=== PATIENT | male | born 1980 | race Caucasian/White ===

== ENCOUNTER 2016-02-18 11:18 | Emergency (ER) | payer OTHER ==
[2016-02-18] MEDS ORDERED: Sodium Chloride 0.9% 1000 ML 1,000 ML IV STA (11:44)
[2016-02-18] MEDS ORDERED: Levaquin 500MG/100ML D5W 100 ML IV ONE ×2 (11:44→11:50)
[2016-02-18] MEDS ORDERED: TORAdol 30 mg Injection IV ONE (11:46)
[2016-02-18] MEDS ORDERED: TORAdol 30 mg Injection ONE (11:50)
[2016-02-18] MEDS ORDERED: Sodium Chloride 0.9% 1000 ML 1,000 ML ONE (11:50)
--- NOTE | 2016-02-18 11:53 | ERPHSYRPT ---
- History of Present Illness Time Seen by Provider: 02/18/16 11:40 Source: patient Exam Limitations: clinical condition Patient Subjective Stated Complaint: PT REPORTS BILATERAL RIB PAIN BEGINNING A FEW DAYS AGO-PRODUCTIVE COUGH-UNSURE OF FEVER-REPORTS PAIN INCREASES WITH DEEP BREATHING Triage Nursing Assessment: PT FLUSHED WARM ET DRY-A & O X 3-RESP NONLABORED- LUNGS CLEAR Physician History: PATIENT COMPLAINS OF PRODUCTIVE COUGH GREEN SPUTUM ASSOCIATED WITH BILATERAL CHEST PAIN UPON INSPIRATION. DENIES FEVER, DYSPNEA, CHEST PAIN AT REST. Timing/Duration: day(s) Cough Quality/Degree: productive cough Possible Cause: occasional episodes Modifying Factors: Improves With: coughing Associated Symptoms: chest pain/soreness, cough Allergies/Adverse Reactions: Penicillins Allergy (Unknown, Verified 02/18/16 11:29) Hx Tetanus, Diphtheria Vaccination/Date Given: No Hx Influenza Vaccination/Date Given: No Hx Pneumococcal Vaccination/Date Given: No Immunizations Up to Date: Yes - Review of Systems Constitutional: No Symptoms, No Fever, No Chills Eyes: No Symptoms Ears, Nose, & Throat: No Symptoms Respiratory: Cough, No Dyspnea Cardiac: Chest Pain, No Edema, No Syncope Abdominal/Gastrointestinal: No Symptoms, No Abdominal Pain, No Nausea, No Vomiting, No Diarrhea Genitourinary Symptoms: No Symptoms, No Dysuria Musculoskeletal: No Symptoms, No Back Pain, No Neck Pain Skin: No Symptoms, No Rash Neurological: No Symptoms, No Dizziness, No Focal Weakness, No Sensory Changes Psychological: No Symptoms Endocrine: No Symptoms All Other Systems: Reviewed and Negative - Past Medical History Pertinent Past Medical History: Yes Neurological History: No Pertinent History ENT History: No Pertinent History Cardiac History: No Pertinent History Respiratory History: No Pertinent History Endocrine Medical History: No Pertinent History Musculoskeletal History: No Pertinent History GI Medical History: Diverticulitis History: No Pertinent History Psycho-Social History: No Pertinent History Male Reproductive Disorders: No Pertinent History Other Medical History: CHRONIC BACK PAIN - Past Surgical History Past Surgical History: Yes Neuro Surgical History: No Pertinent History Cardiac: No Pertinent History Respiratory: No Pertinent History Gastrointestinal: No Pertinent History Genitourinary: No Pertinent History Musculoskeletal: Orthopedic Surgery Male Surgical History: No Pertinent History Other Surgical History: TONSILS. TORN LIGAMENT REPAIR IN LEFT KNEE - Social History Smoking Status: Current every day smoker How long have you smoked: 5 Exposure to second hand smoke: Yes Drug Use: none Patient Lives Alone: No - Nursing Vital Signs Nursing Vital Signs: Initial Vital Signs Temperature 98.1 F Temperature Source Oral Pulse Rate 90 Respiratory Rate 22 Blood Pressure 117/71 Pain Intensity 5 - Physical Exam General Appearance: no apparent distress, alert Eye Exam: PERRL/EOMI, eyes nml inspection Ears, Nose, Throat Exam: normal ENT inspection, TMs normal, pharynx normal, moist mucous membranes Neck Exam: normal inspection, non-tender, supple, full range of motion Respiratory Exam: normal breath sounds, chest tenderness (BILATERAL LOWER RIBS 8TH TO 12TH, NO CREPITUS OR ECCHYMOSIS), lungs clear, No respiratory distress Cardiovascular Exam: regular rate/rhythm, normal heart sounds Gastrointestinal/Abdomen Exam: soft, normal bowel sounds, other (OBESE, NONTENDER.), No tenderness Back Exam: normal inspection, No CVA tenderness, No vertebral tenderness Extremity Exam: normal inspection, normal range of motion Neurologic Exam: alert, oriented x 3, cooperative, normal mood/affect, sensation nml, No motor deficits Skin Exam: normal color, warm, dry, No rash Lymphatic Exam: No adenopathy SpO2 Interpretation: normal SpO2: 96 Oxygen Delivery: Room Air - Radiology Exams Chest X-ray Interpretation: Discussed w/ radiologist, Negative, No Infiltrates Ordered Tests: Active Orders 24 hr Category Date Time Status CHEST 2 VIEWS (PA AND LAT) Stat Exams 02/18/16 11:45 Completed CBC W DIFF Stat Lab 02/18/16 11:45 Completed Medication Summary Generic Name Dose Route Start Last Admin Trade Name Freq PRN Reason Stop Dose Admin Sodium Chloride 1,000 mls @ 500 mls/hr 02/18/16 11:44 02/18/16 11:51 Sodium Chloride 0.9% 1000 Ml IV 02/18/16 13:43 500 mls/hr .Q2H STA Administration Discontinued Medications Generic Name Dose Route Start Last Admin Trade Name Freq PRN Reason Stop Dose Admin Levofloxacin/Dextrose 100 mls @ 100 mls/hr 02/18/16 11:44 02/18/16 11:51 Levaquin 500mg/100ml D5w IV 02/18/16 12:43 100 mls/hr STAT ONE Administration Sodium Chloride Confirm 02/18/16 11:50 Sodium Chloride 0.9% 1000 Ml Administered 02/18/16 11:51 Dose 1,000 mls @ ud .ROUTE .STK-MED ONE Levofloxacin/Dextrose Confirm 02/18/16 11:50 Levaquin 500mg/100ml D5w Administered 02/18/16 11:51 Dose 100 mls @ ud IV .STK-MED ONE Ketorolac Tromethamine 30 mg 02/18/16 11:46 02/18/16 11:51 Toradol 30 Mg Injection IV 02/18/16 11:47 30 mg STAT ONE Administration Ketorolac Tromethamine Confirm 02/18/16 11:50 Toradol 30 Mg Injection Administered 02/18/16 11:51 Dose 30 mg .ROUTE .STK-MED ONE Lab/Rad Data: Laboratory Result Diagrams 02/18/16 11:45 Laboratory Results 02/18/16 Range/Units 11:45 WBC 10.2 (4.0-10.5) K/mm3 RBC 4.95 (4.1-5.6) M/mm3 Hgb 14.8 (12.5-18.0) gm/dl Hct 45.9 (42-50) % MCV 92.7 (78-100) fl MCH 29.9 (26-32) pg MCHC 32.2 (32-36) g/dl RDW 13.8 (11.5-14.0) % Plt Count 402 (150-450) K/mm3 MPV 9.8 H (6-9.5) fl Gran % 68.9 H (36.0-66.0) % Lymphocytes % 20.4 L (24.0-44.0) % Monocytes % 9.0 (0.0-12.0) % Eosinophils % 1.5 (0.00-5.0) % Basophils % 0.2 (0.0-0.4) % Basophils # 0.02 (0-0.4) - Progress Progress Note: 02/18/16 11:51 PATIENT ADMINISTERED IV NORMAL SALINE 500ML/HR, LEVAQUIN 500MG IVPB, TORADOL 30MG IV FOR ANALGESIA. Blood Culture(s) Obtained: No Antibiotics given: Yes (LEVAQUIN 500MG IVPB) Counseled pt/family regarding: lab results, diagnosis, need for follow-up, rad results - Departure Time of Disposition: 13:10 Departure Disposition: Home Clinical Impression: ACUTE BRONCHITIS, COSTOCHONDRITIS Condition: Stable Critical Care Time: No Referrals: COSMO REBOLLAR [Primary Care Provider] - Additional Instructions: CONTINUE MOTRIN NEEDED FOR PAIN. ANTIBIOTIC LEVAQUIN 500MG DAILY FOR 10 DAYS. ULTRAM 50MG EVERY 4 HOURS NEEDED FOR SEVERE PAIN. CONTINUE YOUR OVER THE COUNTER COUGH SYRUP DIRECTED. FOLLOWUP WITH YOUR FAMILY PHYSICIAN IN 1 WEEK. Prescriptions: Tramadol HCl 50 mg [Ultram 50 mg] 50 mg PO Q4H PRN PRN #15 tablet PRN Reason: Pain Levofloxacin [Levaquin] 500 mg PO DAILY #10 tablet
[2016-02-18 12:08] LABS: BASOPHIL % 0.2 % (0.0-0.4); Eosinophil % 1.5 % (0.00-5.0); Granulocytes % 68.9 % (36.0-66.0); Lymphocytes % 20.4 % (24.0-44.0); Mean Cell Volume 92.7 fl (78-100); Mean Corpuscular Hemoglobin 29.9 pg (26-32); Mean Platelet Volume 9.8 fl (6-9.5); Platelet Count 402 K/mm3 (150-450); Red Blood Count 4.95 M/mm3 (4.1-5.6); Red Cell Distribution Width 13.8 % (11.5-14.0); White Blood Count 10.2 K/mm3 (4.0-10.5)
--- NOTE | 2016-02-18 12:23 | XRAY ---
Indication: Productive cough. Bilateral rib pain with coughing. Comparison: August 05, 2014 PA/lateral chest demonstrates normal heart, lungs, and bony thorax.
[2016-02-18 13:17] VITALS: BP 120/67; PULSE 92; O2SAT 98
== END 2016-02-18 13:16 | disposition home or self-care (01) ==
LOC: ED 11:18
DX: J20.9 Acute bronchitis, unspecified (principal); M94.0 Chondrocostal junction syndrome [Tietze]; R07.89 Other chest pain; R05 Cough; F17.200 Nicotine dependence, unspecified, uncomplicated
CPT/HCPCS: 36415; 71020; 85025; 96360; 96361; 96365; 99282; J1885; J1956

== ENCOUNTER 2017-01-06 13:23 | Emergency (ER) | payer OTHER ==
[2017-01-06 13:50] VITALS: BP 146/89; O2SAT 97
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
[2017-01-06 14:22] VITALS: PULSE 70
== END 2017-01-06 14:21 | disposition home or self-care (01) ==
LOC: ED 13:23
DX: R51 Headache (principal); S09.8XXA Other specified injuries of head, initial encounter; Y04.0XXA Assault by unarmed brawl or fight, initial encounter
CPT/HCPCS: 99282